=== PATIENT | male | born 1980 | race Caucasian/White ===

== ENCOUNTER 2025-05-31 10:04 | Inpatient (IN) | payer OTHER ==
[~2025-05-31] VITALS: Ht 188 cm; Wt 81.8 kg
[2025-05-31 10:39] LABS: PLATELET COUNT (AUTO) 252 K/uL (150-450); RED BLOOD CELL COUNT(AUTO) 4.46 MIL/uL (4.50-5.90); RED CELL DISTRIBUTION WIDTH 15.1 % (11.5-14.5); WHITE BLOOD COUNT (AUTO) 4.8 K/uL (4.5-11.0)
[2025-05-31 10:45] LABS: CALCIUM, TOTAL 9.1 mg/dL (8.8-10.5); CREATININE 0.71 mg/dL (0.60-1.30); GLOMERULAR FILTR. RATE CALC > 60 mL/min (>60); GLUCOSE,RANDOM 110 mg/dL (70-110); SODIUM SERUM 140 mmol/L (136-145); UREA NITROGEN, BLOOD 19 mg/dL (7-18)
[2025-05-31] MEDS: ONDANSETRON HCL 4 MG/2 ML VIAL IVP ONE (11:28)
[2025-05-31] MEDS: FAMOTIDINE 20 MG/2 ML VIAL IVP ONE (11:28)
[2025-05-31] MEDS: SODIUM CHLORIDE 0.9% 1,000 ML IV ONE (11:28)
[2025-05-31 15:20] VITALS: BP 127/60; PULSE 63; RESP 18; TEMP 97.9; O2SAT 97
[2025-05-31] MEDS ORDERED: ACETAMINOPHEN 325 MG TABLET PO PRN ×2 (17:45)
[2025-05-31] MEDS ORDERED: MAG HYDROX/ALUMINUM HYD/SIMETH ES 30 ML SUSPENSION UDCUP PO PRN (17:45)
[2025-05-31] MEDS ORDERED: IPRATROPIUM BROMIDE 0.5 MG/2.5 ML NEB SOLUTION NEB PRN (17:45)
[2025-05-31] MEDS ORDERED: HYDROCODONE/ACETAMINOPHEN 5-325 MG TABLET PO PRN (17:45)
[2025-05-31] MEDS ORDERED: MAGNESIUM HYDROXIDE SUSPENSION 30 ML UDCUP PO PRN (17:45)
[2025-05-31] MEDS ORDERED: DICYCLOMINE HCL 10 MG CAPSULE PO PRN (17:45)
[2025-05-31] MEDS ORDERED: LOPERAMIDE HCL 2 MG/15 ML SUSPENSION UDCUP PO PRN (17:45)
[2025-05-31] MEDS ORDERED: IBUPROFEN 600 MG TABLET PO PRN ×2 (17:45)
[2025-05-31] MEDS ORDERED: BACLOFEN 10 MG TABLET PO PRN (17:45)
[2025-05-31] MEDS ORDERED: BISACODYL 10 MG RECTAL RECTAL SUPPOSITORY PR PRN (17:45)
[2025-05-31] MEDS ORDERED: PROMETHAZINE HCL 25 MG TABLET PO PRN (17:45)
[2025-05-31] MEDS ORDERED: ONDANSETRON HCL 4 MG/2 ML VIAL IVP PRN (17:45)
[2025-05-31] MEDS ORDERED: MORPHINE SULFATE 4 MG/ML SYRINGE IVP PRN (17:45)
[2025-05-31] MEDS ORDERED: ALBUTEROL SULFATE 2.5 MG/0.5 ML NEB SOLUTION NEB PRN (17:45)
[2025-05-31] MEDS: SODIUM CHLORIDE 0.45% 1,000 ML IV SCH (18:35)
[2025-05-31 20:14] VITALS: BP 117/79; PULSE 68; RESP 18; TEMP 97.7; O2SAT 98
[2025-06-01] MEDS: HEPARIN SODIUM,PORCINE 5,000 UNITS/ML VIAL SQ SCH
[2025-06-01] MEDS: ZOLPIDEM TARTRATE 5 MG TABLET PO PRN (01:14)
[2025-06-01 04:13] VITALS: BP 134/89; PULSE 86; RESP 18; TEMP 98; O2SAT 100
[2025-06-01 07:10] LABS: PH,URINE DRUG SCREEN 6.0 (5.0-8.0)
[2025-06-01 07:28] LABS: ALCOHOL, URINE DRUG SCREEN NEGATIVE (NEGATIVE); AMPHET/METH SCREEN,URINE POSITIVE (NEGATIVE); BARBITURATE SCREEN, URINE NEGATIVE (NEGATIVE); CANNABINOID SCREEN,URINE POSITIVE (NEGATIVE); COCAINE SCREEN,URINE NEGATIVE (NEGATIVE); METHADONE SCREEN, URINE NEGATIVE (NEGATIVE)
[2025-06-01 08:00] VITALS: BP 120/71; PULSE 61; RESP 20; TEMP 98.1; O2SAT 98
[2025-06-01] MEDS: PANTOPRAZOLE SODIUM 40 MG DR TABLET PO SCH (09:30)
[2025-06-01 12:00] VITALS: BP 104/78; PULSE 68; RESP 18; TEMP 97.9; O2SAT 97
[2025-06-01 16:00] VITALS: BP 109/80; PULSE 67; RESP 20; TEMP 97.9; O2SAT 99
[2025-06-01 20:00] VITALS: BP 101/63; PULSE 69; RESP 18; TEMP 97.7; O2SAT 100
[2025-06-02 04:00] VITALS: BP 125/69; PULSE 70; RESP 18; TEMP 98; O2SAT 98
[2025-06-02 07:38] VITALS: BP 116/75; PULSE 55; RESP 18; TEMP 97.7; O2SAT 100
[2025-06-02 08:00] VITALS: BP 116/75; PULSE 55; RESP 18; TEMP 97.7; O2SAT 100
[2025-06-02 19:36] VITALS: BP 112/77; PULSE 70; RESP 18; TEMP 98.4; O2SAT 98
[2025-06-03 04:21] VITALS: BP 124/85; PULSE 66; RESP 18; TEMP 98.2; O2SAT 98
[2025-06-03 07:11] LABS: PLATELET COUNT (AUTO) 252 K/uL (150-450); RED BLOOD CELL COUNT(AUTO) 4.39 MIL/uL (4.50-5.90); RED CELL DISTRIBUTION WIDTH 14.8 % (11.5-14.5); WHITE BLOOD COUNT (AUTO) 3.8 K/uL (4.5-11.0)
[2025-06-03 07:38] LABS: CALCIUM, TOTAL 8.7 mg/dL (8.8-10.5); CREATININE 0.83 mg/dL (0.60-1.30); GLOMERULAR FILTR. RATE CALC > 60 mL/min (>60); GLUCOSE,RANDOM 99 mg/dL (70-110); SODIUM SERUM 138 mmol/L (136-145); UREA NITROGEN, BLOOD 15 mg/dL (7-18)
[2025-06-03 07:59] VITALS: BP 104/68; PULSE 72; RESP 20; TEMP 98.2; O2SAT 98
[2025-06-03 08:54] VITALS: BP 102/68; PULSE 72; RESP 18; TEMP 98.2; O2SAT 98
[2025-06-03 20:15] VITALS: BP 103/64; PULSE 66; RESP 18; TEMP 98.1; O2SAT 98
== END 2025-06-04 06:59 | DRG 897 ==
LOC: EMS 10:05 → EDH 11:37 → 6N 14:55
PROVIDERS: ADMIT Hospitalist; ATTEND Hospitalist
DX: F11.13 Opioid abuse with withdrawal (principal); F17.200 Nicotine dependence, unspecified, uncomplicated; F19.10 Other psychoactive substance abuse, uncomplicated
CPT/HCPCS: 80048; 80307; 85025; 99285; G0480; J1644; J2405; J3490; J7030